=== PATIENT | female | born 1960 | race Caucasian/White ===

== ENCOUNTER 2019-02-21 05:36 | Inpatient (IN) | payer BC ==
[2019-02-10 11:14] LABS: CLARITY,URINE CLEAR (Clear); COLOR,URINE YELLOW (Yellow); GLUCOSE, URINE NEGATIVE (Neg); KETONES,URINE NEGATIVE (Neg); LEUKOCYTE ESTERASE ,URINE NEGATIVE (Neg); NITRITES, URINE NEGATIVE (Neg); OCCULT BLOOD,URINE NEGATIVE (Neg); PROTEIN,URINE NEGATIVE (Neg); UROBILINOGEN,URINE 0.2 E.U/dL (0.2-1.0)
[2019-02-10 11:15] LABS: UA COLLECTION TYPE VOIDED
[2019-02-10 11:18] LABS: BASOPHILS % (AUTO) 0.6 % (0-1); EOSINOPHILS # (AUTO) 0.2 X10'3 (0-0.9); EOSINOPHILS % (AUTO) 3.6 % (0-6); MONOCYTES # (AUTO) 0.7 X10'3 (0-0.9)
[2019-02-10 11:20] LABS: LYMPHOCYTES # (AUTO) 0.9 X10'3 (1.1-4.8); LYMPHOCYTES % (AUTO) 12.7 % (21-51); MEAN CORPUSCULAR HEMOGLOBIN 29.6 PG (27.0-31.0); MEAN CORPUSCULAR HGB CONC 34.4 g/dL (33.0-36.5); MONOCYTES % (AUTO) 9.9 % (2-12); NEUTROPHILS # (AUTO) 4.9 X10'3 (1.8-7.7); NEUTROPHILS % (AUTO) 73.2 % (42-75); PRE OP HEMATOCRIT 42.4 % (35.0-45.0); PRE OP HEMOGLOBIN 14.6 g/dL (12.0-16.0); PRE OP PLATELET COUNT 337 X10'3 (140-440); RED BLOOD COUNT 4.93 X10'6 (4.20-5.60); RED CELL DISTRIBUTION WIDTH 13.6 % (11.5-14.5)
[2019-02-10 11:22] LABS: HEMOGLOBIN A1C 6.1 % (4.5-6.2)
[2019-02-10 11:28] LABS: ALBUMIN 3.9 G/DL (3.4-5.0); ALBUMIN/GLOBULIN RATIO 1.1 (1.1-1.5); ALKALINE PHOSPHATASE 75 IU/L (46-116); BLOOD UREA NITROGEN 15 MG/DL (7-18); BUN/CREATININE RATIO 23.4 (6.6-38.0); CALCIUM 10.1 MG/DL (8.5-10.1); CHLORIDE 95 MMOL/L (99-107); CREATININE 0.64 MG/DL (0.40-0.90); PRE OP ALT 27 U/L (30-65); PRE OP ANION GAP 6 (8-16); PRE OP AST 15 U/L (10-37); PRE OP BILIRUB, TOTAL 0.4 MG/DL (0.0-1.0); PRE OP GLUCOSE 88 MG/DL (70-104); PRE OP POTASSIUM 4.2 MMOL/L (3.4-5.1); TOTAL CARBON DIOXIDE 28.8 MMOL/L (24-32); TOTAL PROTEIN 7.6 G/DL (6.4-8.2); eGFR > 90 ML/MIN
[2019-02-10 11:35] LABS: PRE OP SODIUM 130 MMOL/L (135-145)
[2019-02-10 11:41] LABS: GIANT PLATELET FEW; LARGE PLATELETS FEW; PLATELET ESTIMATE NORMAL
[2019-02-21] VITALS (19 sets, daily range): BP systolic 100–136; BP diastolic 51–82
[~2019-02-21] VITALS: Ht 165.1 cm; Wt 136.1 kg
[~2019-02-21 05:36] MED LIST: ASCO500C15 PO; CALC-1051 PO; CHOL10002 PO; DOCU-264 PO; DULO-31 PO; IRON PO; LISI1TAB11 PO; LOVA40TA2 PO; MULT-1085 PO; OXYB10TA4 PO; PIOG15TA8 PO; POTA10TA10 PO; SPIR25TA5 PO; TRAM50TA2 PO; acetaminophen 325mg tablet PO ONE; ceFAZolin inj. 3,000 MG in normal saline 100ml IV soln 100 ML IV ONE; celeCOXIB 100mg capsule PO ONE; famotidine 20mg tablet PO ONE; gabapentin 300mg capsule PO ONE; metoclopramide 5 mg/ml inj IV ONE; oxyCODONE SR 10mg (sust. release) tab PO ONE; ringers solution, lacted 1,000 ML IV SCH; tranexamic acid inj. 1,500 MG in normal saline 100ml IV soln 100 ML IV ONE; vancomycin inj 1,500 MG in normal saline 300ml IV soln IV ONE
[2019-02-21] MEDS ORDERED: LIDOcaine 1% (10mg/ml) 2ml vial ONE (05:52)
[2019-02-21] MEDS ORDERED: ROPIVAcaine 0.5% (5mg/ml) 30ml vial ONE ×2 (06:52→07:56)
[2019-02-21] MEDS ORDERED: bacitracin inj 150,000 UNIT in sodium chloride irrig. sol 3,000 ML IR ONE (07:00)
[2019-02-21] MEDS ORDERED: MIDAZolam 1mg/ml 10ml vial ONE (07:12)
[2019-02-21] MEDS ORDERED: fentaNYL/PF 50MCG/1 ML 2ML syringe ONE (07:12)
[2019-02-21 07:31] LABS: ISTAT CREATININE 0.7 mg/dL (0.6-1.1); ISTAT IONIZED CALCIUM 1.32 mmol/L (1.03-1.32); ISTAT K 4.1 mmol/L (3.5-5.1); POC BUN/CREATININE RATIO 24.3 (6.6-38.0)
[2019-02-21] MEDS ORDERED: LIDOcaine 1%/PF 5ML 10 MG/ML VIAL ONE ×2 (07:42→07:56)
[2019-02-21] MEDS ORDERED: propofol inj 20 ML IV ONE (07:42)
[2019-02-21] MEDS ORDERED: fentaNYL /PF 50mcg/ml 5ml ampule ONE (08:22)
[2019-02-21] MEDS ORDERED: morphine 4 MG/ML inj SYRINge IV PRN ×2 (08:40)
[2019-02-21] MEDS ORDERED: ondansetron/PF 4mg/2ml inj IV PRN ×2 (08:40→10:25)
[2019-02-21] MEDS ORDERED: ringers solution, lacted 1,000 ML IV SCH (08:40)
[2019-02-21] MEDS ORDERED: meperidine/PF 25mg/ml syringe IV PRN ×3 (08:40)
[2019-02-21] MEDS ORDERED: proCHLORperazine 10 MG/2 ml inj IV PRN (08:40)
[2019-02-21] MEDS ORDERED: ketorolac trometh. 30mg/ml inj. ONE (10:16)
[2019-02-21] MEDS ORDERED: magnesium hydroxide 30ml (MOM) UD suspension PO PRN (10:25)
[2019-02-21] MEDS ORDERED: dextrose ORAL solution 15 GM/59 ML bottle PO PRN ×2 (10:25)
[2019-02-21] MEDS ORDERED: diphenhydrAMINE 25mg capsule PO PRN ×2 (10:25)
[2019-02-21] MEDS ORDERED: insulin Lispro (HumaLOG) vial - multi-dose SQ SCH (10:25)
[2019-02-21] MEDS ORDERED: MESSAGE TO PHARMACY PO ONE (10:25)
[2019-02-21] MEDS ORDERED: dextrose 50%-water 50ml dispensing syringe IV PRN ×2 (10:25)
[2019-02-21] MEDS ORDERED: glucagon, human recombinant 1mg kit SUBCUT PRN (10:25)
[2019-02-21] MEDS ORDERED: acetaminophen 325mg tablet PO PRN (10:25)
[2019-02-21] MEDS ORDERED: bisacodyl 10mg suppository rectal RC PRN (10:25)
[2019-02-21] MEDS ORDERED: HYDROmorphone 1 mg/ml syringe IV PRN (10:25)
[2019-02-21] MEDS ORDERED: oxyCODONE/APAP 10/325mg tablet PO PRN (10:25)
--- NOTE | 2019-02-21 10:30 | NUR ---
Received from OR via BED , accompanied by Anesthesiologist DR STARR and report given by Anesthesiolgist. PATIENT WAKING UP, DENIES PAIN, V/S WNL, NEUROVASCULAR CHECKS INTACT, 18G PIV LUE , DRESSING TO RIGHT KNEE WRAP DRESSING CDI WITH HV SCANT OUTPUT AND COLD POWDER PACK WITH KNEE IMMOBILIZER BRACE ON. F/C DRAINING CLEAR YELLOW URINE. SCD ON
--- NOTE | 2019-02-21 11:30 | NUR ---
PATIENT A&OX4, DENIES PAIN, V/S WNL, NEUROVASCULAR CHECKS INTACT, 18G PIV LUE , DRESSING TO RIGHT KNEE CDI W/ COLD POWDER PACK AND IMMOBILIZER BRACE W/ SCD ON. F/C DRAINING CLEAR YELLOW URINE. . PATIENT TAKEN TO WITH ALL BELONGINGS AND HOOKED UP TO MONITORS IN ROOM AND REPORT GIVEN TO RUBBER COMPOUNDER MIXER WHO HAS TAKEN OVER PATIENT CARE.
[2019-02-21] MEDS: potassium cl 20mEq in 1/2 NS 1,000 ML IV SCH ×2 (11:57→20:35)
[2019-02-21] MEDS: gabapentin 300mg capsule PO SCH ×2 (14:08→20:37)
[2019-02-21] MEDS: oxyCODONE/APAP 10/325mg tablet PO PRN ×2 (14:09→20:36)
[2019-02-21] MEDS: ceFAZolin 1GM/D5W- ADD-VANTAGE 50 ML IV SCH (15:55)
[2019-02-21] MEDS ORDERED: non-formulary drug (Potassium Chloride* (Klor-Con*) 1 TAB) PO SCH (20:00)
[2019-02-21] MEDS ORDERED: vancomycin/NS 1 GM ADD-VANTAGE 250 ML IV SCH (20:00)
[2019-02-21] MEDS: sennosides 8.6mg tablet PO SCH (20:36)
[2019-02-21] MEDS: HYDROchlorothiazide 12.5mg capsule PO SCH (20:36)
[2019-02-21] MEDS: lisinopril 20mg tablet PO SCH (20:36)
[2019-02-21] MEDS: potassium chloride 10mEq ER tablet PO SCH (20:37)
[2019-02-21] MEDS: ascorbic acid 500mg tablet PO SCH (20:37)
[2019-02-21] MEDS: duloxetine 30mg CAPSULE.DR PO SCH (20:37)
[2019-02-21] MEDS: insulin glargine (Lantus) pen - multi-dose SQ SCH (21:00)
[2019-02-22] VITALS (7 sets, daily range): BP systolic 102–126; BP diastolic 47–68
[2019-02-22] MEDS: ceFAZolin 1GM/D5W- ADD-VANTAGE 50 ML IV SCH (00:30)
[2019-02-22] MEDS: oxyCODONE/APAP 10/325mg tablet PO PRN ×5 (00:30→19:45)
[2019-02-22] MEDS: potassium cl 20mEq in 1/2 NS 1,000 ML IV SCH ×3 (05:31→19:45)
--- NOTE | 2019-02-22 06:16 | NUR ---
REPORT GIVEN TO BOBY CHASE
--- NOTE | 2019-02-22 06:19 | NUR ---
Patient in room ORTHO 4022. I have received report from Yojana CHASE and had the opportunity to ask questions and assume patient care.
[2019-02-22 07:05] LABS: BASOPHILS % (AUTO) 0.3 % (0-1); EOSINOPHILS # (AUTO) 0.1 X10'3 (0-0.9); EOSINOPHILS % (AUTO) 0.5 % (0-6); HEMATOCRIT 36.9 % (35.0-45.0); HEMOGLOBIN 12.5 g/dl (12.0-16.0); LYMPHOCYTES # (AUTO) 0.8 X10'3 (1.1-4.8); LYMPHOCYTES % (AUTO) 7.5 % (21-51); MEAN CORPUSCULAR HEMOGLOBIN 29.7 PG (27.0-31.0); MEAN CORPUSCULAR HGB CONC 33.8 g/dL (33.0-36.5); MEAN CORPUSCULAR VOLUME 87.8 FL (78-98); MONOCYTES # (AUTO) 1.3 X10'3 (0-0.9); MONOCYTES % (AUTO) 13.1 % (2-12); NEUTROPHILS % (AUTO) 78.6 % (42-75); PLATELET COUNT 285 X10'3 (140-440); RED CELL DISTRIBUTION WIDTH 13.3 % (11.5-14.5); WHITE BLOOD COUNT 10.2 X10'3 (4.5-11.0)
[2019-02-22 07:10] LABS: INR 1.1 INR
[2019-02-22 07:19] LABS: ANION GAP 6 (8-16); CHLORIDE 97 MMOL/L (99-107); SODIUM 132 MMOL/L (135-145)
[2019-02-22] MEDS: spironolactone 25 MG tablet PO SCH (08:04)
[2019-02-22] MEDS: pioglitazone 15mg tablet PO SCH (08:04)
[2019-02-22] MEDS: docusate sod 100mg capsule PO SCH (08:05)
[2019-02-22] MEDS: oxybutynin 5mg tablet PO SCH ×4 (08:05→19:44)
[2019-02-22] MEDS: potassium chloride 10mEq ER tablet PO SCH ×2 (08:06→19:44)
[2019-02-22] MEDS: atorvastatin 10mg tablet PO SCH (08:06)
[2019-02-22] MEDS: HYDROchlorothiazide 12.5mg capsule PO SCH ×2 (08:07→19:44)
[2019-02-22] MEDS: lisinopril 20mg tablet PO SCH ×2 (08:08→19:44)
[2019-02-22] MEDS: ascorbic acid 500mg tablet PO SCH ×2 (08:10→19:43)
[2019-02-22] MEDS: multivitamins, therapeutics tablet PO SCH (08:10)
[2019-02-22] MEDS: gabapentin 300mg capsule PO SCH ×3 (08:13→19:45)
[2019-02-22] MEDS ORDERED: warfarin 10mg tablet PO ONE (10:00)
--- NOTE | 2019-02-22 11:40 | NUR ---
Student Medication Administration:For this medication-pass time frame [id number], all medications were reviewed, administered and documented per hospital policy by Matt Orozco. Student documentation:I have reviewed and agree with all interventions, assessments performed and documented by Matt Orozco.
--- NOTE | 2019-02-22 11:55 | NUR ---
Problems reprioritized. Patient report given, questions answered & plan of care reviewed with Yojana CHASE.
--- NOTE | 2019-02-22 19:14 | NUR ---
RECEIVED REPORT FROM BOBY CHASE AND ASSUMED PATIENT CARE
[2019-02-22] MEDS: duloxetine 30mg CAPSULE.DR PO SCH (19:43)
[2019-02-22] MEDS: sennosides 8.6mg tablet PO SCH (19:44)
[2019-02-22] MEDS: celeCOXIB 100mg capsule PO SCH (19:44)
[2019-02-22] MEDS: insulin glargine (Lantus) pen - multi-dose SQ SCH (19:47)
[2019-02-23] MEDS: potassium cl 20mEq in 1/2 NS 1,000 ML IV SCH (04:52)
[2019-02-23] MEDS: oxyCODONE/APAP 10/325mg tablet PO PRN ×3 (04:52→14:41)
--- NOTE | 2019-02-23 05:30 | NUR ---
HEMOVAC DRAIN DISCONTINUED, STERILE 4X4 GAUZE APPLIED TO SITE. MINIMAL BLEEDING NOTED.
[2019-02-23 06:00] VITALS: BP 117/44
--- NOTE | 2019-02-23 06:18 | NUR ---
REPORT GIVEN TO JONATHAN CHASE
[2019-02-23 06:47] LABS: BASOPHILS # (AUTO) 0.1 X10'3 (0-0.2); BASOPHILS % (AUTO) 0.6 % (0-1); EOSINOPHILS # (AUTO) 0.8 X10'3 (0-0.9); EOSINOPHILS % (AUTO) 7.3 % (0-6); HEMATOCRIT 37.8 % (35.0-45.0); HEMOGLOBIN 12.6 g/dl (12.0-16.0); LYMPHOCYTES # (AUTO) 0.9 X10'3 (1.1-4.8); LYMPHOCYTES % (AUTO) 9.1 % (21-51); MEAN CORPUSCULAR HEMOGLOBIN 29.1 PG (27.0-31.0); MEAN CORPUSCULAR HGB CONC 33.5 g/dL (33.0-36.5); MEAN PLATELET VOLUME 8.2 FL (7.4-10.4); MONOCYTES # (AUTO) 1.2 X10'3 (0-0.9); MONOCYTES % (AUTO) 11.5 % (2-12); NEUTROPHILS # (AUTO) 7.4 X10'3 (1.8-7.7); NEUTROPHILS % (AUTO) 71.5 % (42-75); PLATELET COUNT 299 X10'3 (140-440); RED BLOOD COUNT 4.34 X10'6 (4.20-5.60); RED CELL DISTRIBUTION WIDTH 13.6 % (11.5-14.5); WHITE BLOOD COUNT 10.3 X10'3 (4.5-11.0)
[2019-02-23 07:04] LABS: INR 1.1 INR; PROTHROMBIN TIME 11.3 SECONDS (9.0-12.0)
[2019-02-23] MEDS: potassium chloride 10mEq ER tablet PO SCH (07:53)
[2019-02-23] MEDS: pioglitazone 15mg tablet PO SCH (07:53)
[2019-02-23] MEDS: oxybutynin 5mg tablet PO SCH (07:54)
[2019-02-23] MEDS: celeCOXIB 100mg capsule PO SCH (07:54)
[2019-02-23] MEDS: gabapentin 300mg capsule PO SCH ×2 (07:55→14:42)
[2019-02-23] MEDS: HYDROchlorothiazide 12.5mg capsule PO SCH (07:55)
[2019-02-23] MEDS: lisinopril 20mg tablet PO SCH (07:55)
[2019-02-23] MEDS: docusate sod 100mg capsule PO SCH (07:56)
[2019-02-23] MEDS: multivitamins, therapeutics tablet PO SCH (07:56)
[2019-02-23] MEDS: ascorbic acid 500mg tablet PO SCH (07:56)
[2019-02-23] MEDS: spironolactone 25 MG tablet PO SCH (07:56)
[2019-02-23] MEDS: atorvastatin 10mg tablet PO SCH (08:00)
[2019-02-23 10:00] VITALS: BP 135/66
[2019-02-23] MEDS ORDERED: warfarin 10mg tablet PO ONE (10:00)
[2019-02-23] MEDS ORDERED: acetaminophen 325mg tablet PO PRN (10:25)
[2019-02-23] MEDS ORDERED: ASPI-1264 PO (10:47)
--- NOTE | 2019-02-23 11:09 | NUR ---
Joint replacement: Pt PO 100% carb controlled meals per RN meeting needs. Labs WNL. No need for protein reinforcement at this time. Addendum: 02/23/19 at [address] Amended: Links added.
== END 2019-02-23 15:25 | disposition home health service (06) | DRG 470 ==
LOC: PAS IN 05:36 → EDSTATUS 07:30 → ORTHO 4S 11:39
PROVIDERS: ADMIT Specialist; ATTEND Specialist
PROC: 0LNQ0ZZ Release Right Knee Tendon, Open Approach (ICD-10-PCS; 2019-02-21)
PROC: 3E0T3BZ Introduction of Anesthetic Agent into Peripheral Nerves and Plexi, Percutaneous Approach (ICD-10-PCS; 2019-02-21)
PROC: 0SRC0J9 Replacement of Right Knee Joint with Synthetic Substitute, Cemented, Open Approach (ICD-10-PCS; principal; 2019-02-21 07:20)
DX: M17.0 Bilateral primary osteoarthritis of knee (principal); Z68.42 Body mass index [BMI] 45.0-49.9, adult; E11.9 Type 2 diabetes mellitus without complications; E66.01 Morbid (severe) obesity due to excess calories; M25.761 Osteophyte, right knee; I10 Essential (primary) hypertension; F32.9 Major depressive disorder, single episode, unspecified; M21.161 Varus deformity, not elsewhere classified, right knee; N32.81 Overactive bladder; Z85.3 Personal history of malignant neoplasm of breast; Z90.710 Acquired absence of both cervix and uterus
CPT/HCPCS: 36415; 73560; 80047; 80051; 80053; 81003; 82948; 83036; 85025; 85610; 85730; 87070; 97110; 97116; 97162; 97530; A6449; A6455; A7000; C1713; C1758; C1776; G0378; J0690; J1815; J1885; J2001; J2175; J2250; J2704; J2795; J3010; J3370; J3490; J7030; J7120

== ENCOUNTER 2019-05-23 08:12 | Inpatient (IN) | payer BC ==
[2019-05-12 12:21] LABS: BASOPHILS % (AUTO) 0.6 % (0-1); EOSINOPHILS # (AUTO) 0.3 X10'3 (0-0.9); LYMPHOCYTES # (AUTO) 0.9 X10'3 (1.1-4.8); MEAN PLATELET VOLUME 8.4 FL (7.4-10.4); MONOCYTES # (AUTO) 0.7 X10'3 (0-0.9); NEUTROPHILS # (AUTO) 5.7 X10'3 (1.8-7.7); PRE OP HEMOGLOBIN 13.6 g/dL (12.0-16.0); PRE OP PLATELET COUNT 308 X10'3 (140-440)
[2019-05-12 12:22] LABS: EOSINOPHILS % (AUTO) 4.4 % (0-6); LYMPHOCYTES % (AUTO) 11.4 % (21-51); MEAN CORPUSCULAR HEMOGLOBIN 28.9 PG (27.0-31.0); MEAN CORPUSCULAR HGB CONC 33.7 g/dL (33.0-36.5); MEAN CORPUSCULAR VOLUME 85.7 FL (78-98); MONOCYTES % (AUTO) 9.6 % (2-12); PRE OP HEMATOCRIT 40.4 % (35.0-45.0); RED BLOOD COUNT 4.71 X10'6 (4.20-5.60); RED CELL DISTRIBUTION WIDTH 14.1 % (11.5-14.5)
[2019-05-12 12:32] LABS: ALBUMIN 3.7 G/DL (3.4-5.0); ALKALINE PHOSPHATASE 82 IU/L (46-116); BLOOD UREA NITROGEN 18 MG/DL (7-18); BUN/CREATININE RATIO 24.7 (6.6-38.0); CALCIUM 9.9 MG/DL (8.5-10.1); CHLORIDE 101 MMOL/L (99-107); CREATININE 0.73 MG/DL (0.40-0.90); PRE OP ALT 27 U/L (30-65); PRE OP ANION GAP 3 (8-16); PRE OP AST 14 U/L (10-37); PRE OP BILIRUB, TOTAL 0.3 MG/DL (0.0-1.0); PRE OP GLUCOSE 111 MG/DL (70-104); PRE OP POTASSIUM 3.6 MMOL/L (3.4-5.1); PRE OP PROTIME 9.9 SECONDS (9.0-12.0); PRE OP SODIUM 137 MMOL/L (135-145); TOTAL CARBON DIOXIDE 33.3 MMOL/L (24-32); TOTAL PROTEIN 7.4 G/DL (6.4-8.2); eGFR 82 ML/MIN
[2019-05-12 12:55] LABS: HEMOGLOBIN A1C 6.1 % (4.5-6.2)
[2019-05-12 13:05] LABS: CLARITY,URINE CLEAR (Clear); COLOR,URINE YELLOW (Yellow); GLUCOSE, URINE NEGATIVE (Neg); KETONES,URINE NEGATIVE (Neg); LEUKOCYTE ESTERASE ,URINE NEGATIVE (Neg); NITRITES, URINE NEGATIVE (Neg); OCCULT BLOOD,URINE NEGATIVE (Neg); PH,URINE 6.5 (4.8-8.0); PROTEIN,URINE NEGATIVE (Neg); UROBILINOGEN,URINE 0.2 E.U/dL (0.2-1.0)
[2019-05-12 13:08] LABS: UA COLLECTION TYPE CLN CATCH MIDSTREAM
[~2019-05-23] VITALS: Ht 162.6 cm; Wt 136.9 kg
[2019-05-23] VITALS (18 sets, daily range): BP systolic 111–165; BP diastolic 46–94
[~2019-05-23 08:12] MED LIST changes: +ASPI81TA52 PO; +DICL50TA6 PO; +DICL75TA5 PO; +FERR325T32 PO; -IRON PO; -OXYB10TA4 PO; +OXYB5TAB11 PO; -acetaminophen 325mg tablet PO ONE; -ceFAZolin inj. 3,000 MG in normal saline 100ml IV soln 100 ML IV ONE; -celeCOXIB 100mg capsule PO ONE; -famotidine 20mg tablet PO ONE; -gabapentin 300mg capsule PO ONE; -metoclopramide 5 mg/ml inj IV ONE; -oxyCODONE SR 10mg (sust. release) tab PO ONE; -ringers solution, lacted 1,000 ML IV SCH; -tranexamic acid inj. 1,500 MG in normal saline 100ml IV soln 100 ML IV ONE; -vancomycin inj 1,500 MG in normal saline 300ml IV soln IV ONE
[2019-05-23] MEDS ORDERED: ceFAZolin inj. 3,000 MG in normal saline 100ml IV soln 100 ML IV ONE (08:30)
[2019-05-23] MEDS ORDERED: vancomycin inj 1,500 MG in normal saline 300ml IV soln IV ONE (08:30)
[2019-05-23] MEDS ORDERED: acetaminophen 325mg tablet PO ONE (08:30)
[2019-05-23] MEDS ORDERED: gabapentin 300mg capsule PO ONE (08:30)
[2019-05-23] MEDS ORDERED: celeCOXIB 100mg capsule PO ONE (08:30)
[2019-05-23] MEDS ORDERED: oxyCODONE SR 10mg (sust. release) tab PO ONE (08:30)
[2019-05-23] MEDS ORDERED: famotidine 20mg tablet PO ONE (08:30)
[2019-05-23] MEDS ORDERED: tranexamic acid inj. 1,500 MG in normal saline 100ml IV soln 100 ML IV ONE (08:30)
[2019-05-23] MEDS ORDERED: ringers solution, lacted 1,000 ML IV SCH ×2 (08:30→12:59)
[2019-05-23] MEDS ORDERED: LIDOcaine 1% (10mg/ml) 2ml vial ONE (08:45)
--- NOTE | 2019-05-23 09:45 | NUR ---
PT STATES SHES NOT UNSTABLE ON HER FEET, DOESN'T USE A WALKER AT HOME Addendum: 05/23/19 at 0955 by Perlita Qureshi RN Amended: Links added.
[2019-05-23] MEDS ORDERED: ROPIVAcaine 0.5% (5mg/ml) 30ml vial ONE ×2 (09:58→11:02)
[2019-05-23] MEDS ORDERED: MIDAZolam 1mg/ml 10ml vial ONE (10:17)
[2019-05-23] MEDS ORDERED: fentaNYL/PF 50MCG/1 ML 2ML syringe ONE (10:17)
[2019-05-23] MEDS ORDERED: ceFAZolin 1000mg inj ONE (12:35)
[2019-05-23] MEDS ORDERED: proCHLORperazine 10 MG/2 ml inj IV PRN (13:00)
[2019-05-23] MEDS ORDERED: morphine 4 MG/ML inj SYRINge IV PRN ×2 (13:00)
[2019-05-23] MEDS ORDERED: meperidine/PF 25mg/ml syringe IV PRN ×3 (13:00)
[2019-05-23] MEDS ORDERED: ondansetron/PF 4mg/2ml inj IV PRN ×2 (13:00→13:25)
[2019-05-23] MEDS ORDERED: diphenhydrAMINE 25mg capsule PO PRN (13:25)
[2019-05-23] MEDS ORDERED: dextrose 50%-water 50ml dispensing syringe IV PRN ×2 (13:25)
[2019-05-23] MEDS ORDERED: insulin Lispro (HumaLOG) vial - multi-dose SQ SCH (13:25)
[2019-05-23] MEDS ORDERED: dextrose ORAL solution 15 GM/59 ML bottle PO PRN ×2 (13:25)
[2019-05-23] MEDS ORDERED: MESSAGE TO PHARMACY PO ONE (13:25)
[2019-05-23] MEDS ORDERED: magnesium hydroxide 30ml (MOM) UD suspension PO PRN (13:25)
[2019-05-23] MEDS ORDERED: acetaminophen 325mg tablet PO PRN (13:25)
[2019-05-23] MEDS ORDERED: glucagon, human recombinant 1mg kit SUBCUT PRN (13:25)
[2019-05-23] MEDS ORDERED: oxyCODONE/APAP 10/325mg tablet PO PRN (13:25)
[2019-05-23] MEDS ORDERED: bisacodyl 10mg suppository rectal RC PRN (13:25)
[2019-05-23] MEDS ORDERED: HYDROmorphone inj. 0.5 MG/0.5 ML DISP.SYRIN IV PRN (13:25)
--- NOTE | 2019-05-23 13:34 | NUR ---
Received from OR via , accompanied by Anesthesiologist DR DE LA GARZA and report given by Anesthesiolgist. AWAKE AND JESSICA APIN. VITALS STABLE. DRESSING DI. SENSATION TO THE FEET. PEREZ WITH CLEAR URINE.
--- NOTE | 2019-05-23 14:44 | NUR ---
Report called to receiving nurse. Transferred via BED Belongings . Special Issues communicated to receiving nurse. AWAKE AND ORIENTED. VITALS STABLE. DRESSING DI. JESSICA KNEE PAIN. TO ORTHO RM 4010A AT THIS TIME.
[2019-05-23] MEDS: potassium cl 20mEq in 1/2 NS 1,000 ML IV SCH (16:11)
--- NOTE | 2019-05-23 18:23 | NUR ---
Report received from Elizabeth CHASE.
--- NOTE | 2019-05-23 18:23 | NUR ---
Report to Eri Stearns RN
[2019-05-23] MEDS: ceFAZolin 1GM/D5W- ADD-VANTAGE 50 ML IV SCH (18:32)
[2019-05-23] MEDS ORDERED: non-formulary drug (Potassium Chloride* (Klor-Con*) 1 TAB) PO SCH (20:00)
[2019-05-23] MEDS ORDERED: vancomycin/NS 1 GM ADD-VANTAGE 250 ML IV SCH (20:00)
[2019-05-23] MEDS: sennosides 8.6mg tablet PO SCH (20:14)
[2019-05-23] MEDS: duloxetine 30mg CAPSULE.DR PO SCH (20:14)
[2019-05-23] MEDS: gabapentin 300mg capsule PO SCH (20:14)
[2019-05-23] MEDS: lisinopril 20mg tablet PO SCH (20:15)
[2019-05-23] MEDS: pioglitazone 15mg tablet PO SCH (20:15)
[2019-05-23] MEDS: HYDROchlorothiazide 12.5mg capsule PO SCH (20:15)
[2019-05-23] MEDS: oxyCODONE/APAP 10/325mg tablet PO PRN (20:15)
[2019-05-23] MEDS: potassium chloride 10mEq ER tablet PO SCH (20:16)
[2019-05-23] MEDS: oxybutynin 5mg tablet PO SCH (20:16)
[2019-05-23] MEDS: spironolactone 25 MG tablet PO SCH (20:16)
[2019-05-23] MEDS: ascorbic acid 500mg tablet PO SCH (20:18)
[2019-05-23] MEDS: insulin glargine (Lantus) pen - multi-dose SQ SCH (21:00)
[2019-05-24] MEDS: ceFAZolin 1GM/D5W- ADD-VANTAGE 50 ML IV SCH (00:13)
[2019-05-24] MEDS: oxyCODONE/APAP 10/325mg tablet PO PRN ×5 (00:13→18:54)
--- NOTE | 2019-05-24 00:35 | NUR ---
Call to Dr. Browning regarding pain to pts R non-surgical leg pain. She is having nerve like pain from mid calf medial lateral to foot shooting pain down to foot. She also reports pain unbearable pain when foot is touched. plantar and dorsal flexion are intact foot warm and pulse intact. No med changes made. Will see how pt is in am and order tests in am if needed.
[2019-05-24 02:00] VITALS: BP 106/59
[2019-05-24] MEDS: potassium cl 20mEq in 1/2 NS 1,000 ML IV SCH ×3 (02:28→21:23)
[2019-05-24] MEDS: diphenhydrAMINE 25mg capsule PO PRN ×2 (05:40→20:38)
[2019-05-24 06:00] VITALS: BP 150/60
[2019-05-24 06:50] LABS: BASOPHILS % (AUTO) 0.1 % (0-1); EOSINOPHILS # (AUTO) 0.1 X10'3 (0-0.9); EOSINOPHILS % (AUTO) 0.5 % (0-6); HEMATOCRIT 38.9 % (35.0-45.0); HEMOGLOBIN 12.6 g/dl (12.0-16.0); LYMPHOCYTES # (AUTO) 0.6 X10'3 (1.1-4.8); MEAN CORPUSCULAR HEMOGLOBIN 28.1 PG (27.0-31.0); MEAN CORPUSCULAR HGB CONC 32.4 g/dL (33.0-36.5); MEAN CORPUSCULAR VOLUME 86.7 FL (78-98); MEAN PLATELET VOLUME 8.2 FL (7.4-10.4); MONOCYTES # (AUTO) 1.3 X10'3 (0-0.9); NEUTROPHILS # (AUTO) 9.1 X10'3 (1.8-7.7); NEUTROPHILS % (AUTO) 82.4 % (42-75); PLATELET COUNT 291 X10'3 (140-440); RED BLOOD COUNT 4.48 X10'6 (4.20-5.60); RED CELL DISTRIBUTION WIDTH 14.5 % (11.5-14.5); WHITE BLOOD COUNT 11.1 X10'3 (4.5-11.0)
[2019-05-24 07:08] LABS: ALANINE AMINOTRANSFERASE 21 U/L (12-78); ALBUMIN 3.2 G/DL (3.4-5.0); ALKALINE PHOSPHATASE 59 IU/L (46-116); ANION GAP 5 (8-16); ASPARTATE AMINO TRANSFERASE 13 U/L (10-37); BILIRUBIN,TOTAL 0.5 MG/DL (0.1-1.0); BLOOD UREA NITROGEN 14 MG/DL (7-18); BUN/CREATININE RATIO 15.9 (6.6-38.0); CHLORIDE 99 MMOL/L (99-107); CREATININE 0.88 MG/DL (0.40-0.90); GLUCOSE 111 MG/DL (70-104); POTASSIUM 4.2 MMOL/L (3.5-5.1); SODIUM 133 MMOL/L (135-145); TOTAL CARBON DIOXIDE 28.6 MMOL/L (24-32); TOTAL PROTEIN 6.5 G/DL (6.4-8.2); eGFR 66 ML/MIN
[2019-05-24 07:14] LABS: CALCIUM 8.8 MG/DL (8.5-10.1)
[2019-05-24] MEDS ORDERED: non-formulary drug (Lovastatin 1 TAB) PO SCH (08:00)
[2019-05-24] MEDS: oxybutynin 5mg tablet PO SCH ×2 (08:56→20:38)
[2019-05-24] MEDS: docusate sod 100mg capsule PO SCH (08:56)
[2019-05-24] MEDS: potassium chloride 10mEq ER tablet PO SCH ×2 (08:57→20:37)
[2019-05-24] MEDS: atorvastatin 10mg tablet PO SCH (08:57)
[2019-05-24] MEDS: HYDROchlorothiazide 12.5mg capsule PO SCH ×2 (08:58→20:00)
[2019-05-24] MEDS: lisinopril 20mg tablet PO SCH ×2 (08:59→20:00)
[2019-05-24] MEDS: gabapentin 300mg capsule PO SCH ×3 (08:59→20:38)
[2019-05-24] MEDS: multivitamins, therapeutics tablet PO SCH (08:59)
[2019-05-24] MEDS: ascorbic acid 500mg tablet PO SCH ×2 (08:59→20:37)
[2019-05-24 10:00] VITALS: BP 112/59
[2019-05-24] MEDS ORDERED: warfarin 10mg tablet PO ONE (10:00)
[2019-05-24 14:00] VITALS: BP 91/54
[2019-05-24 18:00] VITALS: BP 97/68
--- NOTE | 2019-05-24 18:18 | NUR ---
Received report from Elizabeth CHASE, assumed care of patient.
--- NOTE | 2019-05-24 18:32 | NUR ---
Report to Eri Stearns RN
--- NOTE | 2019-05-24 18:58 | NUR ---
noted drainage on lateral knee wrap. HV suction still intact, drainage at HV site. reinforced with 4x4s and reported to jenny.
[2019-05-24] MEDS: pioglitazone 15mg tablet PO SCH (20:37)
[2019-05-24] MEDS: spironolactone 25 MG tablet PO SCH (20:37)
[2019-05-24] MEDS: duloxetine 30mg CAPSULE.DR PO SCH (20:37)
[2019-05-24] MEDS: sennosides 8.6mg tablet PO SCH (20:38)
[2019-05-24] MEDS: celeCOXIB 100mg capsule PO SCH (20:38)
[2019-05-24] MEDS: insulin glargine (Lantus) pen - multi-dose SQ SCH (21:00)
[2019-05-24 22:00] VITALS: BP 109/55
[2019-05-25] MEDS: oxyCODONE/APAP 10/325mg tablet PO PRN ×3 (00:39→15:37)
[2019-05-25 06:00] VITALS: BP 99/52
--- NOTE | 2019-05-25 06:00 | NUR ---
Patient in room ORTHO 4010. I have received report from and had the opportunity to ask questions and assume patient care RENA Bhardwaj
--- NOTE | 2019-05-25 06:32 | NUR ---
Report given to Michelle CHASE.
[2019-05-25 08:00] VITALS: BP_SYST 97
[2019-05-25] MEDS: HYDROchlorothiazide 12.5mg capsule PO SCH (08:00)
[2019-05-25] MEDS: lisinopril 20mg tablet PO SCH (08:00)
[2019-05-25] MEDS: gabapentin 300mg capsule PO SCH ×2 (08:27→13:43)
[2019-05-25] MEDS: oxybutynin 5mg tablet PO SCH (08:27)
[2019-05-25] MEDS: ascorbic acid 500mg tablet PO SCH (08:27)
[2019-05-25] MEDS: potassium chloride 10mEq ER tablet PO SCH (08:27)
[2019-05-25] MEDS: atorvastatin 10mg tablet PO SCH (08:28)
[2019-05-25] MEDS: celeCOXIB 100mg capsule PO SCH (08:28)
[2019-05-25] MEDS: multivitamins, therapeutics tablet PO SCH (08:29)
[2019-05-25] MEDS: docusate sod 100mg capsule PO SCH (08:30)
[2019-05-25] MEDS ORDERED: ASPI-1264 PO (08:58)
[2019-05-25] MEDS ORDERED: acetaminophen 325mg tablet PO PRN (13:25)
--- NOTE | 2019-05-25 15:43 | NUR ---
Joint replacement consult: Pt seen at bedside provided with written and verbal protein education with RD contact information. Informed RN that patient's diet order was d/c'ed. Pt documented with 75-100% PO intake. Pt pending d/c. Will continue to follow. Addendum: 05/25/19 at [address] Amended: Links added.
--- NOTE | 2019-05-25 16:30 | NUR ---
PT DC home. All necessary documents signed w/copies sent home w/pt. pt verbalizes understanding of safe DC, following up on post op appts & remaining free of complications upon returning home. VSS, tho pt O2 level at times was less than 93. pt asymptomatic of low O2. pt encouraged to cough & controlled breathing exercises, & use IS consistently. Pt denies pain (medication administered earlier), SOB, resp distress, N/V, vertigo at DC. Pt escorted RADHA in WC by [facility] staff & spouse. pt transferred safely into personal vehicle. pt & spouse thanked [facility] staff for her care.
--- NOTE | 2019-05-25 19:35 | NUR ---
patient called back stating the gabapentin was not called into the [facility] in [place] as the RN told her. pt upset that pharmacy is now closed and she cannot get her medication. left message for RENA Martinez to clarify but no call back. Looked through medical record and found no mention of gabapentin in discharge or new RX by Michelle or Danny. Called Dr. Browning to clarify - MD stated that pts are usually not discharged on gabapentin and this is not a special case despite the sensation change post op day 1 on her right leg. stated nothing can be done tonight but if she feels she needs the Gabapentin in am she can call his office and ask Marvin in am. notified patient of these conversations and patient stated it was Dr. Graves who was talking about calling in the RX. informed pt that she should follow up with Dr. Browning in am if she thinks medication is still needed. Pt verbalized understanding and sounded calm and thanked for the return call.
[2019-05-26] MEDS ORDERED: GABA-532 PO (15:06)
== END 2019-05-25 16:55 | disposition home or self-care (01) | DRG 470 ==
LOC: PAS IN 08:12 → EDSTATUS 11:00 → ORTHO 4S 15:00 → UNDODISIN 05-24 14:05
PROVIDERS: ADMIT Specialist; ATTEND Specialist
PROC: 0MNP0ZZ Release Left Knee Bursa and Ligament, Open Approach (ICD-10-PCS; 2019-05-23)
PROC: 3E0T3BZ Introduction of Anesthetic Agent into Peripheral Nerves and Plexi, Percutaneous Approach (ICD-10-PCS; 2019-05-23)
PROC: 0SRD0J9 Replacement of Left Knee Joint with Synthetic Substitute, Cemented, Open Approach (ICD-10-PCS; principal; 2019-05-23 10:15)
DX: M17.12 Unilateral primary osteoarthritis, left knee (principal); Z68.43 Body mass index [BMI] 50.0-59.9, adult; E11.9 Type 2 diabetes mellitus without complications; E66.01 Morbid (severe) obesity due to excess calories; E78.5 Hyperlipidemia, unspecified; N32.81 Overactive bladder; Z96.651 Presence of right artificial knee joint; F32.9 Major depressive disorder, single episode, unspecified; I10 Essential (primary) hypertension; M21.162 Varus deformity, not elsewhere classified, left knee; Z85.3 Personal history of malignant neoplasm of breast; Z90.710 Acquired absence of both cervix and uterus; Z79.899 Other long term (current) drug therapy; Z79.82 Long term (current) use of aspirin
CPT/HCPCS: Z7506; Z7508; 36415; 73560; 80053; 81003; 82948; 83036; 85025; 85610; 85730; 87081; 97110; 97116; 97161; 97530; A6449; A6455; A7000; C1713; C1758; C1776; G0378; J0690; J1815; J2001; J2175; J2250; J2795; J3010; J3370; J3480; J7120; Q0163